=== PATIENT | male | born 1925 | race Caucasian/White ===

== ENCOUNTER 2016-11-15 11:05 | Outpatient (CLI) | payer BC, MEDICARE ==
--- NOTE | 2016-11-15 18:51 | Ultrasound Report ---
ABDOMINAL AORTIC ULTRASOUND: 11/15/2016 CLINICAL HISTORY: An 89-year-old male in for screening exam for abdominal aortic aneurysm. COMPARISON: 08/19/2009 TECHNIQUE: Real-time sonographic vascular imaging was performed by the supervisor opening and picking through the abdom inal aorta utilizing both color-flow and Doppler spectral analysis. Multiple customer counter representative static i mages were saved for review. FINDINGS: This is a screening exam. Abdominal aorta diameters: Proximal abdominal aorta AP diamete r is 2.1 cm. Mid abdominal aorta diameter is 1.8 cm x 1.8 cm. Distal abdominal aorta diameter is 2.6 cm x 2.6 cm. Right common iliac artery diameter is 0.6 cm x 0.6 cm. Left common iliac artery diameter is 1.2 cm x 1.2 cm. Examination is negative for abdominal aortic aneurysm. No significant change is noted as compared to preceding exam. IMPRESSION: NO SIGNIFICANT ABNORMALITY AND NO SIGNIFICANT CHANGE IS SEEN COMPARED TO 08/19/2009. JOB #: [id number] EXT JOB #:[id number]
== END 2016-11-15 11:06 | disposition home or self-care (01) ==
LOC: DI 11:05
PROVIDERS: ATTEND Internal Medicine
DX: I71.4 Abdominal aortic aneurysm, without rupture (principal)
CPT/HCPCS: 93979

== ENCOUNTER 2017-04-02 10:00 | Outpatient (CLI) | payer BC, MEDICARE | END 2017-04-02 10:01 | disposition home or self-care (01) | LOC: LAB.WCP 10:00 | PROVIDERS: ATTEND Family Medicine | DX: M10.9 Gout, unspecified (principal) | CPT/HCPCS: 36415; 84550 ==